=== PATIENT | female | born 1965 | race Caucasian/White ===

== ENCOUNTER 2017-02-18 07:15 | Day surgery (SDC) | payer OTHER ==
[~2017-02-18] VITALS: Ht 154.9 cm; Wt 110.0 kg
[2017-02-18] VITALS (10 sets, daily range): BP systolic 119–159; BP diastolic 65–89; PULSE 70–90; RESP 11–34; Ht 154.9 cm; Wt 110.0 kg
[2017-02-18] MEDS ORDERED: METF500T4 PO (08:21)
[2017-02-18] MEDS ORDERED: VALS80TA2 PO (08:21)
[2017-02-18] MEDS ORDERED: CEFAZOLIN 1 GM/50 ML (PMX) 50 ML IVPB SCH (09:00)
[2017-02-18] MEDS ORDERED: FENTAnyl 50 MCG/ML VIAL ONE (10:35)
[2017-02-18] MEDS ORDERED: ROCURONIUM 50 MG INJ ONE (10:51)
[2017-02-18] MEDS ORDERED: PROPOFOL 20 ML ONE (10:51)
[2017-02-18] MEDS ORDERED: SUCCINYLCHOLINE CHLORIDE 100 MG/5 ML SYG IV ONE (10:51)
[2017-02-18] MEDS ORDERED: LIDOCAINE 2% (SDV) 5 ML INJ ONE (10:51)
[2017-02-18] MEDS ORDERED: CEFAZOLIN 1 GM INJ ONE (10:51)
[2017-02-18 10:52] LABS: BASOPHILS % 0.5 % (0.0-2.0); EOSINOPHILS # 0.1 10^3/ul (0.0-0.5); EOSINOPHILS % 2.1 % (0.0-7.0); HEMOGLOBIN 13.8 g/dl (12.0-16.0); LYMPHOCYTES # 2.4 10^3/ul (0.8-2.9); LYMPHOCYTES % 38.6 % (15.0-51.0); MEAN CORPUSCULAR HEMOGLOBIN 30.7 pg (29.0-33.0); MEAN CORPUSCULAR HGB CONC 32.9 g/dl (32.0-37.0); MEAN CORPUSCULAR VOLUME 93.3 fl (82.0-101.0); MEAN PLATELET VOLUME 9.8 fl (7.4-10.4); MONOCYTE # 0.4 10^3/ul (0.3-0.9); MONOCYTES % 7.2 % (0.0-11.0); NEUTROPHILS % 51.4 % (39.0-77.0); PLATELET COUNT 334 10^3/UL (140-415); RED CELL DISTRIBUTION WIDTH 12.9 % (11.5-14.5); WHITE BLOOD COUNT 6.1 10^3/ul (4.8-10.8)
[2017-02-18 11:11] LABS: INR 0.94; PROTIME 12.6 Sec (12.2-14.2)
[2017-02-18 11:12] LABS: PARTIAL THROMBOPLASTIN TIME 27.8 Sec (25.0-35.0)
--- NOTE | 2017-02-18 11:14 | HP ---
DATE OF ADMISSION: 02/18/2017 CHIEF COMPLAINT: Left ureteral stone. HISTORY OF PRESENT ILLNESS: This patient has a known history of an 8-mm left distal ureteral stone, left hydronephrosis, and left renal atrophy. On 10/25/2015, CT scan of abdomen and pelvis revealed an 8-mm left ureteral stone. On 01/21/2016, nuclear scan showed a 32 percent function, severely obstructed left kidney. On 11/05/2016, renal ultrasound revealed left hydronephrosis with thinning of the left renal parenchyma. The patient was scheduled for surgery in the past but was unable to attend her surgery. Therefore, she required another date for her procedure. The patient also has lower urinary tract symptoms including nocturia, urinary frequency and urgency, as well as urinary incontinence. Her incontinence includes incontinence with urge as well as incontinence with sneezing. She wears one to two pads per day if she goes up. PAST MEDICAL HISTORY: Hypertension, obesity. PAST SURGICAL HISTORY: None. MEDICATIONS: Valsartan. ALLERGIES: NO KNOWN DRUG ALLERGIES. SOCIAL HISTORY: No smoking, no alcohol. FAMILY HISTORY: No cancer. REVIEW OF SYSTEMS: CONSTITUTIONAL: No fevers, no chills, no change in appetite. No weight gain or weight loss. HEENT: No loss of hearing. No ear pain. No rhinorrhea, nosebleed or sore throat. CARDIOVASCULAR: No chest pain. No shortness of breath or heart palpitations. RESPIRATORY: No cough. No phlegm production, wheezing or hemoptysis. GASTROINTESTINAL: No abdominal pain. No cramping. No nausea. MUSCULOSKELETAL: No bone pain. No change in strength or joint pain. INTEGUMENTARY: No skin rash. No lesions. NEUROLOGICAL: No dizziness, no headache, no numbness. PSYCHIATRIC: No suicidal ideation, no depression, no anxiety. HEMATOLOGY/LYMPHATIC: No known bleeding problems. No easy bruising. No lymph node enlargement. PHYSICAL EXAMINATION: CONSTITUTIONAL: The patient appears to be in no acute distress. ABDOMEN: Soft, normal bowel sounds, nondistended, nontender. Hernia exam: None noted. Liver and spleen normal. GENITOURINARY: Kidneys: No costovertebral angle tenderness. Bladder: No suprapubic fullness. NECK: Normal appearing. Symmetric. ASSESSMENT: 1. Left hydronephrosis. 2. Left renal stone. 3. Left renal atrophy. RECOMMENDATIONS: I have spoken with the patient in detail about the natural history and biology of kidney stones. We have discussed various treatment options. Among these options, I have recommended, and the patient has elected to undergo a left ureteroscopy, laser lithotripsy, left ureteral stent placement, left retrograde pyelogram, cystoscopy. This procedure has been explained to the patient in detail. Risks and benefits have been discussed. She understands the risks include but are not limited to infection, bleeding, damage to adjacent structures, heart problems, lung problems, possibility of need for further surgery, DVT, PE, RI, CVA, nonresolution of symptoms requiring need for further treatment, need for further surgeries, ureteral injury, urethral injury, bladder injury, ureteral perforation, inability to treat the stone all in one setting, and need for further treatment, ureteral stricture, worsening of the renal function. She also understands that a stent will be placed which will require her to follow up with us for removal of her stent. All of her questions have been answered. No guarantee was given. She would like to proceed. Dictated By: George Serna MD /eugene/mary ann /Document#: [id number] MICHA
[2017-02-18] MEDS ORDERED: IOHEXOL 300MG/ML 30 ML BTL ONE (11:18)
[2017-02-18] MEDS ORDERED: ONDANSETRON 4 MG INJ IV PRN (11:30)
[2017-02-18] MEDS ORDERED: LABETALOL HCL 20MG INJ IV PRN (11:30)
[2017-02-18] MEDS ORDERED: DIPHENHYDRAMINE 50 MG INJ IV PRN (11:30)
[2017-02-18] MEDS ORDERED: MEPERIDINE 25 MG INJ IV PRN (11:30)
[2017-02-18] MEDS ORDERED: hydrALAzine 20 MG INJ IV PRN (11:30)
[2017-02-18] MEDS ORDERED: HYDROmorphONE (0.2 MG/ML) 10ML SYG IV PRN ×2 (11:30)
[2017-02-18] MEDS ORDERED: METOCLOPRAMIDE 10 MG INJ IV PRN (11:30)
[2017-02-18] MEDS ORDERED: FENTAnyl 50 MCG/ML VIAL IV PRN ×2 (11:30)
[2017-02-18] MEDS ORDERED: OXYCODONE/ACETAMINOPHEN (5/325) TAB PO PRN (12:00)
[2017-02-18] MEDS ORDERED: SUGAMMADEX SODIUM 200 MG/2 ML VIAL IV ONE (12:14)
--- NOTE | 2017-02-18 12:33 | PDOCDIS ---
Discharge Instructions DIAGNOSIS Discharge Diagnosis left ureteral stone/hydronephrosis left renal atrophy CONDITION Patient Condition: Good HOME CARE INSTRUCTIONS: Diet Instructions: Regular ACTIVITY: Activity Restrictions: Slowly Increase Activity Bathing Restrictions: Shower FOLLOW UP/APPOINTMENTS Follow-up Plan 1 - 2 weeks SCHOOL/WORK RELEASE May return to School/Work on: Feb 23, 2017 May return to School/Work with: No Restrictions RICHMOND RODRIGUEZ Feb 18, 2017 12:33
--- NOTE | 2017-02-18 12:35 | OPR ---
Date/Time of Note Date/Time of Note DATE: 02/18/17 TIME: 12:33 Operative Report Preoperative Diagnosis Left ureteral stone/hydronephrosis left renal atrophy Postoperative Diagnosis same Operation/Procedure Performed Left ureterscopy laser lithotripsy, left ureteral stent placement Surgeon: RICHMOND RODRIGUEZ Anesthesia Type: general Estimated Blood Loss: 0 - 10 ml's Transfusion Required: no Specimens Left ureteral stones for analysis Grafts/Implants 24 cm 7 fr left ureteral stent Complications: no RICHMOND RODRIGUEZ Feb 18, 2017 12:35
--- NOTE | 2017-02-18 13:04 | OPR ---
DATE OF OPERATION: 02/18/2017 PREOPERATIVE DIAGNOSIS: Left ureteral stone. POSTOPERATIVE DIAGNOSES: 1. Two large left ureteral stones impacted. 2. Left hydronephrosis. 3. Left renal atrophy. OPERATION PERFORMED: 1. Cystoscopy, left retrograde pyelogram. 2. Left ureteroscopy laser lithotripsy with stone basket extraction. 3. Placement of left ureteral stent. INDICATIONS FOR PROCEDURE: The patient has a history of left ureteral stone and hydronephrosis with decreased renal function to the left kidney. She is scheduled to undergo the above-said procedure. The procedure has been explained to the patient in detail. The risks and benefits have been discussed. All of her questions have been answered. No guarantees given. She would like to proceed. FINDINGS: The patient had not only 1 stone but actually 2 stones. Each stone was about 1 cm in the distal ureter. Both stones were very impacted against the ureteral wall with fibrosis along the distal ureteral wall. The stones were both treated. At the end of the procedure, the ureter was completely free of stones. A 7-Guamanian, 24 cm stent was placed for the patient. OPERATIVE PROCEDURE: The patient was brought to the operating room, underwent general anesthesia. She was placed in lithotomy position. Abdomen, perineum and genitalia were prepped and draped in usual sterile fashion. A 22-Guamanian cystoscope was placed. Cystoscopy was performed. No bladder tumors were seen. 1+ to 2+ trabeculation was identified. The ureteral orifices were orthotopic. The left ureter was identified. An attempt was made to place a guidewire; however, the guidewire would not pass beyond the stones. Fluoroscopy revealed 2 stones in the course of the distal ureter. Each stone was about 1 cm in size, dark and very radiopaque. An open-ended catheter was then used to advance a Sensor wire along the stones up the ureter toward the area of the right renal pelvis. However, it was not possible to advance an open-ended catheter to perform retrograde pyelogram. Thus the wire was kept in place. A semi-rigid 6-Guamanian ureteroscope was then brought into the bladder. This was then advanced into the left distal ureter. The stones are identified. A 365 micron fiber was then placed through the working channel of the ureteroscope. The stone was then treated with laser lithotripsy. Initial laser setting was 0.5 kilojoules at 5 Hz. It was then increased to 0.8 kilojoules and 8 Hz and then it was increased to 1 kilojoule and 12 hertz. It was further increased to 1 kilojoule and 1.2 Hz. This was done throughout the course of the stone treatment system. The stone was very firm and hard to break. Therefore, the energy and the frequency was increased in order to obtain fragmentation. The 1st stone was treated around its periphery toward the center. As this was done, it was very evident that the stone was very impacted against the ureteral wall. There was ureteral wall bullous edema as well as fibrotic appearance to the mucosa of the ureteral wall where the stone had been impacted. This stone was treated to multiple small fragments. As this was done, the entire 1st stone, the most distal one, was treated. A Nitinol tipless basket was then used to grasp the stone fragments. These were all brought out of the ureter and placed into the bladder. The semirigid ureteroscope was placed back into the ureter. The 2nd stone, which was a slightly more proximal than the 1st one was identified. This was also treated with laser lithotripsy. As this was done, the stone was treated to smaller fragments. This stone was also impacted against the ureteral wall. This stone was also about 1 cm in size. Overall about 40 minutes of lasering was performed in order to treat both of the stones. The stone fragments were then grasped with the Nitinol tipless basket and removed from the ureter. Once all the stones in the distal ureter had been removed, the ureteroscope was advanced up the ureter. This was advanced all the way up to the renal pelvis. No further stones were identified anywhere within the course of the ureter. A retrograde pyelogram was performed, which revealed marked hydronephrosis of the left kidney; however, no filling defects or areas of stones were identified on fluoroscopy. The ureteroscope was then brought back the entire length of the ureter. The distal ureter appeared to be fibrosed; however, there was no ureteral perforation. The ureteroscope was discontinued. Over the existing wire, a 7-Guamanian 24 cm stent was advanced. The tip of the stent was brought into the left renal pelvis under fluoroscopy. The wire was partially retracted as the stent was further advanced. A complete coil was obtained in the left renal pelvis. At this point, the wire was completely discontinued and a complete coil was also obtained in the bladder. This cystoscope was placed back into the bladder. The stent was observed to be coiled within the bladder distally. The stone fragments were identified. These were all irrigated out of the bladder. Stone fragments were collected and sent to Pathology as left ureteral stones for chemical analysis. The bladder was emptied. The patient was placed back in supine position. She was awakened, extubated, taken to recovery room in stable condition. Postprocedure condition stable. COMPLICATIONS: None. ESTIMATED BLOOD LOSS: Less than 10 cc. BLOOD ADMINISTERED: None. SPECIMENS: Sent to lab were left ureteral stones for chemical analysis. DRAINS AND PACKS: A 7-Guamanian 24 cm left ureteral stent. Dictated By: George Serna MD /[email or web address]/marielle /Document#: [id number]
[2017-02-18 13:24] LABS: ALBUMIN 3.9 g/dl (3.3-4.9); ALBUMIN/GLOBULIN RATIO 1.14; BILIRUBIN,INDIRECT 0.2 mg/dl (0-1.1); BILIRUBIN,TOTAL 0.2 mg/dl (0.2-1.3); TOTAL PROTEIN 7.3 g/dl (6.1-8.1)
[2017-02-18 13:30] LABS: CALCIUM 8.9 mg/dl (8.4-10.2); CREATININE 0.76 mg/dl (0.44-1.00)
--- NOTE | 2017-02-18 13:42 | DS ---
DATE OF ADMISSION: 02/18/2017 DATE OF DISCHARGE: 02/18/2017 ADMITTING DIAGNOSES: 1. Left ureteral stones. 2. Left hydronephrosis. 3. Left renal atrophy. FINAL DIAGNOSES: 1. Left ureteral stones. 2. Left hydronephrosis. 3. Left renal atrophy. HOSPITAL COURSE: The patient was admitted to the hospital and underwent left ureteroscopy and laser lithotripsy with insertion of left ureteral stent. She tolerated the procedure well. She was then transferred to the recovery room. Once the patient was stable, tolerating her diet, remaining afebrile and pain was well controlled she was discharged home. DISCHARGE INSTRUCTIONS: Activity as tolerated. No heavy lifting. The patient may shower. Follow up in 1 to 2 weeks. DISCHARGE MEDICATIONS: [place], Colace, and Cipro. Dictated By: George Serna MD /[email or web address]/[email or web address] /Document#: [id number]
[2017-02-18 15:03] LABS: ADD UMIC YES; UR ASCORBIC ACID NEGATIVE (NEGATIVE); UR BACTERIA FEW /HPF (NONE SEEN); UR BILIRUBIN (Dip) NEGATIVE (NEGATIVE); UR BLOOD (Dip) NEGATIVE (NEGATIVE); UR CLARITY CLEAR (CLEAR); UR COLOR YELLOW (YELLOW); UR GLUCOSE (Dip) NEGATIVE (NEGATIVE); UR KETONES (Dip) NEGATIVE (NEGATIVE); UR LEUKOCYTE ESTERASE (Dip) TRACE Leu/ul (NEGATIVE); UR NITRITE (Dip) NEGATIVE (NEGATIVE); UR RBC 1 /HPF (0-5); UR SPECIFIC GRAVITY (Dip) 1.009 (1.003-1.030); UR SQUAMOUS EPITHELIAL CELL FEW /HPF (FEW); UR TOTAL PROTEIN (Dip) NEGATIVE (NEGATIVE); UR UROBILINOGEN (Dip) NEGATIVE (NEGATIVE)
--- NOTE | 2017-02-20 08:11 | RADRPT ---
PROCEDURE: X-ray fluoroscopy guidance CLINICAL INDICATION: Cystogram and retrograde urogram TECHNIQUE: Fluoroscopic guidance was utilized for an intraoperative procedure. Fluoro time: 0.2 minutes Number of images/sequences: 11 COMPARISON: None available FINDINGS: Dilated intrarenal collecting system is seen. A ureteral stent was placed in good position. [place] us structures are unremarkable. The bowel pattern as visualized is normal. No other osseous abnorm ality is seen. IMPRESSION: 1. X-ray fluoroscopic guidance utilized for intraoperative procedure. 2. Placement for a dilated intrarenal collecting system. RPTAT: HMJB .Sim Ryan MD, Date Time Electronically viewed and signed by .Sim Ryan MD, on 02/20/2017 08:11 .B/
== END 2017-02-18 15:00 | disposition home or self-care (01) ==
LOC: SDS 07:15
PROVIDERS: ATTEND Surgery Surgical Oncology
DX: N13.2 Hydronephrosis with renal and ureteral calculous obstruction (principal); N26.1 Atrophy of kidney (terminal); I10 Essential (primary) hypertension; E11.9 Type 2 diabetes mellitus without complications; E66.01 Morbid (severe) obesity due to excess calories; Z68.42 Body mass index [BMI] 45.0-49.9, adult
CPT/HCPCS: 52356; 74430; 80053; 81001; 82962; 85025; 85610; 85730; C2617; J0690; J2405; J2765; J3010; Q9967; Z7512; Z7610; J7999